=== PATIENT | female | born 1990 | race Two or more races ===

== ENCOUNTER 2018-07-13 07:23 | Emergency (ER) | payer SELFPAY ==
[~2018-07-13] VITALS: Ht 160 cm; Wt 65.8 kg
[2018-07-13] MEDS ORDERED: IBUPROFEN 600 MG TABLET PO ONE ×2 (07:46→08:00)
--- NOTE | 2018-07-13 08:48 | NUR ---
[employer] officer [place] [id number] Here for traffic report. Pt waiting for XR results and disposition
[2018-07-13 09:16] VITALS: BP 112/78
--- NOTE | 2018-07-13 09:20 | NUR ---
ACI given verbalized understanding. Pt discharged to home ambulatory in stable condition NO obvious distress. No acute changes
== END 2018-07-13 09:19 | disposition home or self-care (01) ==
LOC: ER 07:26
DX: S63.592A Other specified sprain of left wrist, initial encounter (principal); F10.10 Alcohol abuse, uncomplicated; Y90.9 Presence of alcohol in blood, level not specified; V43.52XA Car driver injured in collision with other type car in traffic accident, initial encounter; Y93.89 Activity, other specified; Y92.410 Unspecified street and highway as the place of occurrence of the external cause; Y99.8 Other external cause status
CPT/HCPCS: 71045; 72170; 73110; 84703; 99285; A4606; Z7610